=== PATIENT | female | born 1990 | race Caucasian/White ===

== ENCOUNTER 2017-05-12 23:02 | Emergency (ER) | payer MEDICAID, SELFPAY ==
[2017-05-12 23:03] VITALS: BP 120/63; PULSE 67; RESP 18; TEMP 36.7; O2SAT 99; BMI 34.0
[2017-05-13] MEDS: Ketorolac 60 MG/2 ML Vial IM (00:05)
--- NOTE | 2017-05-13 00:45 | ED.VISSUMM ---
- ER Visit Summary Date of Service: 05/13/17 Chief Complaint: Migraine History of Present Illness: The patient is a 27 F who reports onset of migraine headache tonight. She describes a throbbing sensation behind both eyes. She did take Tylenol at home and has had some mild improvement. She does report light sensitivity and nausea. She denies recent head injury or URI symptoms. Physical Examination: Vital signs are unremarkable. Patient sitting upright in a darkened room. She is in no acute distress. Head and neck examination is normal. The patient has no meningismus. Heart is regular rate and rhythm. Lungs are clear. Abdomen is soft nontender. Neuro exam is unremarkable. Test Results: [] Emergency Department Course and Treatment: Patient was given IM Toradol. She did not want anything that would make her sleepy. On repeat evaluation headache is completely resolved and she feels significantly improved. Treatment Plan: [] Disposition: Discharge Impression: Migraine, improved This note was generated with [employer] dictation software. It may contain incorrect words, spelling, and punctuation that were not noted in review of the chart prior to signing ED Disposition - Plan for ED Patient: Chief Complaint: Headache Referrals: Care Physician,No Primary [Primary Care Provider] -
--- NOTE | 2017-05-13 00:47 | ED.DEP ---
ED Disposition - Plan for ED Patient: Disposition: Home or Assisted Living Chief Complaint: Headache Instructions: ED Headache Migraine Referrals: Keith Ng MD [STAFF PHYSICIAN] - As Needed
[2017-05-13 00:50] VITALS: RESP 18
== END 2017-05-13 00:51 | disposition home or self-care (01) ==
PROVIDERS: Emergency Provider Emergency Medicine
DX: G43.909 Migraine, unspecified, not intractable, without status migrainosus (principal); Z90.49 Acquired absence of other specified parts of digestive tract; Z72.0 Tobacco use
CPT/HCPCS: 96372; 99282

== ENCOUNTER 2017-07-14 13:23 | Emergency (ER) | payer MEDICAID, SELFPAY ==
[2017-07-14 13:24] VITALS: BP 124/78; PULSE 84; RESP 16; TEMP 36.6; O2SAT 96; BMI 31.3
[2017-07-14 13:38] LABS: Mucous, Urine 0 SEEN /hpf (<or=2+)
[2017-07-14 13:47] LABS: Color, Urine Red (Yellow); Glucose, Dipstick Normal (Normal); Ketone-Dipstick 5 mg/dl (Negative); Leukocyte Esterase-Dipstick 100 /ul (Negative); Nitrite-Dipstick Negative (Negative); Occult Blood-Urine 250 /ul (Negative); Protein-Dipstick 100 mg/dl (Negative); Specific Gravity, Urine 1.005 (1.002-1.030); Urine Bilirubin Dipstick Negative (Negative); Urine Clarity Cloudy (Clear); Urine Urobilinogen Normal (Normal)
[2017-07-14 14:02] LABS: Red Blood Cells-Urine > 100 SEEN /hpf (0-5); Squamous Epithelial Cells - UA 0-5 SEEN /hpf (5-10); White Blood Cells 0-5 SEEN /hpf (0-5)
[2017-07-14 14:02] LABS: Absolute Lymphocyte Count 1.81 X10^3/ul (0.83-4.51); Absolute Neutrophil Count 7.3 X10^3/uL (2.0-7.7); Basophil# 0.03 X10^3/uL; Basophil% 0.3 % (0-1); Eosinophil# 0.25 X10^3/uL; Eosinophils% 2.5 % (0-5); Hematocrit 42.9 % (37-47); Hemoglobin 14.4 g/dl (12.0-15.0); Lymphocyte # 1.81 X10^3/ul (4.0); Lymphocyte % 17.9 % (19-41); Mean Corp Hgb Conc 33.6 g/gl (32-36); Mean Corpuscular Hgb 28.9 pg (27.0-32.0); Mean Platelet Vol. 10.3 fl (6.2-12.0); Monocyte% 6.9 % (0-10); Neutrophil % 72.2 % (47-70); Platelet Count 280 K/mm3 (150-450); RBC Distribution Width SD 40.3 fl (35.1-43.9); Red Blood Count 4.99 M/mm3 (4.2-5.4); White Blood Count 10.1 K/mm3 (4.4-11.0)
[2017-07-14 14:03] LABS: Bacteria 1+ /hpf (None Seen)
[2017-07-14 14:06] LABS: POSITIVE COUNT NO; POSITIVE DIFFERENTIAL NO; POSITIVE MORPHOLOGY NO
[2017-07-14 14:09] LABS: BUN 12 mg/dL (7-18); Glucose 97 mg/dL (74-106)
[2017-07-14 14:10] LABS: Anion Gap 6 (5-15); Calcium,Total 9.3 mg/dL (8.5-10.1); Chloride 106 mmol/L (98-107); EST Glomerular Filtration Rate 90 mL/min (>60); Est Glom Filt Rate - Afr Amer 109 mL/min (>60); Potassium 3.6 mmol/L (3.5-5.1); Sodium Level 138 mmol/L (136-145)
[2017-07-14 14:23] LABS: Pregnancy, Serum, hCG Quali. NEGATIVE Negative (0-9 Nonpreg)
--- NOTE | 2017-07-14 15:13 | ED.DCSUM_ITS ---
- ER Visit Summary Date of Service: 07/14/17 Chief Complaint: Left flank pain History of Present Illness: The patient is a 27 F who presents with left flank pain. She has had intermittent left flank pain since yesterday. Currently she has no pain. She denies any nausea vomiting or diarrhea. She does report a history of kidney stones and anemia. She has had some dysuria at the end of urination as well as frequency and urgency. She has noted an odor to her urine. She denies any fevers. Physical Examination: Afebrile vitals are normal Moist mucous membranes Heart regular rate and rhythm Lungs are clear The abdomen is soft nontender nondistended No flank or CVA tenderness Test Results: CBC BMP normal. negative. Urinalysis shows 100 leukocyte esterase negative nitrites 250 blood greater than 100 RBCs 0-5 WBCs. Emergency Department Course and Treatment: The patient currently is on her menstrual period and stated that this may be what her blood is from. However I did explain that with intermittent left flank pain history of kidney stones or hematuria kidney stones or possibility. However she declined any further workup at this time she does not want a CT or any further testing. She states that she just wants to follow-up as an outpatient. We will also culture her urine. She understands to return for new or worsening symptoms. She understands to return for recurrent pain or fever. She was discharged. Treatment Plan: [] Disposition: Discharge Impression: Left flank pain This note was generated with [email or web address] dictation software. It may contain incorrect words, spelling, and punctuation that were not noted in review of the chart prior to signing ED Disposition - Plan for ED Patient: Chief Complaint: Flank Pain Referrals: Care Physician,No Primary [Primary Care Provider] -
--- NOTE | 2017-07-14 15:13 | ED.DEP ---
ED Disposition - Plan for ED Patient: Chief Complaint: Flank Pain Instructions: ED Flank Pain Uncertain Cause Referrals: Care Physician,No Primary [Primary Care Provider] - Arlette Hester DO [STAFF PHYSICIAN] -
== END 2017-07-14 15:25 | disposition home or self-care (01) ==
PROVIDERS: Emergency Provider Emergency Medicine
DX: R10.9 Unspecified abdominal pain (principal); R30.0 Dysuria; R39.15 Urgency of urination; R35.0 Frequency of micturition; Z72.0 Tobacco use; Z87.442 Personal history of urinary calculi; Z86.2 Personal history of diseases of the blood and blood-forming organs and certain disorders involving the immune mechanism
CPT/HCPCS: 80048; 81001; 84703; 85025; 87086; 87088; 87186; 99283; A4216

== ENCOUNTER 2017-11-07 19:23 | Emergency (ER) | payer MEDICAID, SELFPAY ==
[2017-11-07 19:25] VITALS: BP 114/69; PULSE 60; PULSE 66; RESP 15; TEMP 36.6; O2SAT 98; O2SAT 99; BMI 30.5
--- NOTE | 2017-11-07 19:55 | RAD_ITS ---
STUDY: X-RAY - RIGHT HAND REASON FOR EXAM: Female, 27 years old. Trauma TECHNIQUE: 3 view(s) of the hand. COMPARISON: None. FINDINGS: Normal radiocarpal articulation. Normal distal radioulnar joint. Normal visualized carpal bones. Normal carpal articulations Normal carpometacarpal articulation of the thumb. Normal second through fifth carpometacarpal joints. Normal metacarpi. Normal metacarpophalangeal joint of the thumb. Normal interphalangeal joint of the thumb. Normal proximal and distal phalanges of the thumb. Normal metacarpophalangeal joints of the second through fifth fingers. Normal proximal and distal interphalangeal joints of the second through fifth fingers. Normal phalanges of the second through fifth fingers. The soft tissue structures are unremarkable. RAD/Hand Min 3 Views IMPRESSION: Normal x-ray examination of the hand. Electronically Signed: Khris Jacob MD at 20:24 EDT , Service support ,
--- NOTE | 2017-11-07 20:50 | ED.DCSUM_ITS ---
- ER Visit Summary Date of Service: 11/07/17 Chief Complaint: Right hand injury History of Present Illness: The patient is a 27 F who punched a wall with her right hand approximately 2 hours prior to arrival. She is pain and swelling over the fourth MCP joint. She denies paresthesias. She is right-hand dominant. Physical Examination: Vital signs unremarkable. Patient sitting upright in bed no acute distress. Right upper extremity examination significant for edema and ecchymosis over the right fourth MCP joint. She has full range of motion. There is normal cap refill. There is normal sensation. There is no injury or tenderness at the wrist, elbow, or shoulder. Test Results: Right hand x-rays reveal no evidence of fracture. Emergency Department Course and Treatment: Patient's hand is placed in an Geraldo wrap. She is in a prescription for naproxen. Treatment Plan: [] Disposition: Discharge Impression: Right hand contusion This note was generated with [employer] dictation software. It may contain incorrect words, spelling, and punctuation that were not noted in review of the chart prior to signing ED Disposition - Plan for ED Patient: Disposition: Home or Assisted Living Chief Complaint: Upper Extremity Injury Instructions: ED Contusion Hand Prescriptions: Naproxen [Naprosyn] 500 mg PO BID PRN #20 tablet Referrals: Keith Ng MD [STAFF PHYSICIAN] - As Needed
[2017-11-07 21:06] VITALS: BP 121/74; PULSE 71; RESP 16; O2SAT 98
== END 2017-11-07 21:07 | disposition home or self-care (01) ==
PROVIDERS: Emergency Provider Emergency Medicine
DX: S60.221A Contusion of right hand, initial encounter (principal); W22.09XA Striking against other stationary object, initial encounter; Y93.9 Activity, unspecified; Y92.9 Unspecified place or not applicable; Y99.9 Unspecified external cause status; Z79.899 Other long term (current) drug therapy
CPT/HCPCS: 73130; 99282